=== PATIENT | female | born 1945 | race Caucasian/White ===

== ENCOUNTER 2021-11-13 05:36 | Outpatient (CLI) | payer BC, MEDICARE ==
[~2021-11-13] VITALS: Ht 165.1 cm; Wt 70.5 kg
[~2021-11-13 05:36] MED LIST: MTP25TSR; PANT40SU
[2021-11-14] MEDS ORDERED: CALC300T4 PO (15:08)
[2021-11-14] MEDS ORDERED: MTP25TSR PO (15:08)
[2021-11-14] MEDS ORDERED: ATOR40TA70 PO (15:08)
[2021-11-14] MEDS ORDERED: LEVO75TA PO (15:08)
[2021-11-14] MEDS ORDERED: PANT40TA2 PO (15:08)
== END 2021-11-14 15:13 | disposition home or self-care (01) ==
LOC: PREOP 05:36
PROVIDERS: ATTEND Urology
DX: Z01.818 Encounter for other preprocedural examination (principal)

== ENCOUNTER 2021-11-20 05:57 | Day surgery (SDC) | payer MEDICARE, OTHER ==
[~2021-11-20] VITALS: Ht 165.1 cm; Wt 70.5 kg
[2021-11-20] VITALS (10 sets, daily range): BP systolic 113–148; BP diastolic 55–75
[~2021-11-20 05:57] MED LIST changes: +ATOR40TA70 PO; +CALC300T4 PO; +LEVO75TA PO; +MTP25TSR PO; +PANT40TA2 PO
[2021-11-20] MEDS ORDERED: LACTATED RINGERS 1,000 ML IV PRN (06:30)
[2021-11-20] MEDS ORDERED: FAMOTIDINE 20MG/2ML IV (PEPCID) IV ONE (06:30)
[2021-11-20] MEDS ORDERED: ONDANSETRON 4 MG/2 ML (SDV) Z0FRAN IV ONE (06:30)
[2021-11-20] MEDS ORDERED: cefTRIAXone 1 GM PRE-MIX 50 ML IV ONE ×2 (06:35→08:00)
[2021-11-20] MEDS ORDERED: fentaNYL INJ 100 MCG/2 ML AMP ONE (06:59)
[2021-11-20] MEDS ORDERED: LIDOCAINE PF 2% 5 ML (XYLOCAINE) VIAL ONE (06:59)
[2021-11-20] MEDS ORDERED: ONDANSETRON 4 MG/2 ML (SDV) Z0FRAN ONE (06:59)
[2021-11-20] MEDS ORDERED: proPOfol 200 MG/20 ML (DIPRIVAN) VIAL IV ONE (06:59)
[2021-11-20] MEDS ORDERED: MIDAZOLAM 2 MG/2 ML (VERSED) VIAL ONE (07:00)
--- NOTE | 2021-11-20 07:51 | Progress Note-Pre Operative ---
Pre-Operative Progress Note H&P Reviewed The H&P was reviewed, patient examined and no changes noted. Date Seen by Provider: Nov 20, 2021 Time Seen by Provider: 07:51 Date H&P Reviewed: Nov 20, 2021 Time H&P Reviewed: 07:51 Pre-Operative Diagnosis: SMALL BLADDER TUMOR BARBARA LEWIS MD Nov 20, 2021 07:51
--- NOTE | 2021-11-20 07:53 | Progress Note-Post Operative ---
Post-Operative Progess Note Surgeon (s)/Food Inspector (s) Surgeon BARBARA LEWIS MD Food Inspector: NONE Pre-Operative Diagnosis SMALL BLADDER TUMOR Post-Operative Diagnosis SAME Procedure & Operative Findings Date of Procedure 11/20/21 Procedure Performed/Findings TURBT Anesthesia Type GENERAL Estimated Blood Loss Estimated blood loss (mL): NEGLGIBLE Specimens/Packing Specimens Removed BLADDER TUMOR AND BASE Packing: NONE BARBARA LEWIS MD Nov 20, 2021 07:53
--- NOTE | 2021-11-20 07:54 | Discharge Inst-Urology ---
Discharge Inst-Urology Reconcile Patient Problems Problems Reviewed?: Yes Final Diagnosis SMALL BLADDER TUMOR Patient Instructions/Follow Up Plan/Assessment/Instructions Please make appointment to been seen in office in 2 weeks. Increase oral fluids for 48 hours and then as needed. Diet and Activity as tolerated. If questions or concerns contact your physician Or seek help at emergency department. BARBARA LEWIS MD Nov 20, 2021 07:54
[2021-11-20] MEDS ORDERED: PHEN-640 PO (07:57)
[2021-11-20] MEDS ORDERED: NITR-65 PO (07:57)
[2021-11-20] MEDS ORDERED: SEVOFLURANE (ULTANE) 15 ML INHAL SOLN ONE ×2 (08:16→08:19)
[2021-11-20] MEDS ORDERED: ROCURONIUM 10 MG/ML 5 ML SYRINGE IV ONE (08:16)
[2021-11-20] MEDS ORDERED: GLYCOPYRROLATE 0.2 MG/ML (ROBINUL) 2 ML VIAL ONE (08:21)
[2021-11-20] MEDS ORDERED: NEOSTIGMINE 3 MG/3 ML VIAL ONE (08:21)
--- NOTE | 2021-11-20 12:36 | Anesthesia-General Post-Op ---
General Patient Condition Mental Status/LOC: Same as Preop Cardiovascular: Satisfactory Nausea/Vomiting: Absent Respiratory: Satisfactory Pain: Controlled Complications: Absent Post Op Complications Complications None Follow Up Care/Instructions Patient Instructions None needed. Anesthesia/Patient Condition Patient Condition Patient is doing well, no complaints, stable vital signs, no apparent adverse anesthesia problems. No complications reported per nursing. YOVANA KING CRNA Nov 20, 2021 12:35
--- NOTE | 2021-11-20 14:10 | OPERATIVE REPORT ---
DATE OF SERVICE: 11/20/2021 PREOPERATIVE DIAGNOSIS: Small bladder tumor. POSTOPERATIVE DIAGNOSIS: Small bladder tumor. OPERATION PERFORMED: Transurethral resection of bladder tumor. SURGEON: Cade Lewis MD ANESTHESIA: General. COMPLICATIONS: None. DESCRIPTION OF PROCEDURE: Under satisfactory general anesthesia, the patient in lithotomy position, genitalia were prepped and draped in the usual sterile fashion. Resectoscope was introduced in the bladder and again visualized the solitary small bladder tumor on the right side above and lateral to the ureteral orifice, was completely resected, shelling very easily and then a bite was taken from the base for staging. Hemostasis was complete. No further tumor was identified. Bladder was emptied, so resectoscope was removed. The patient tolerated the procedure and anesthesia well and was sent to recovery room in stable condition. The tumor was sent separately from the base to pathology. Job ID: [id number] DocumentID: [id number] Dictated Date: 11/20/2021 08:23:29 Squadron Worker Date: 11/20/2021 14:09:30 Dictated By: CADE LEWIS MD
== END 2021-11-20 10:25 | disposition home or self-care (01) ==
LOC: SDC 05:57
PROVIDERS: ATTEND Urology
DX: C67.9 Malignant neoplasm of bladder, unspecified (principal); N30.20 Other chronic cystitis without hematuria
CPT/HCPCS: 87081

== ENCOUNTER → 2021-12-11 | Outpatient (CLI) | payer MEDICARE, OTHER ==
[~2021-12-11] MED LIST changes: +CATHETER FLUSH 10 ML SYR IVP PRN; +NITR-65 PO; +PHEN-640 PO
[2021-12-11 09:32] VITALS: BP 160/75
[2021-12-11 09:39] VITALS: BP 153/65
[2021-12-11 09:44] VITALS: BP 174/59
--- NOTE | 2021-12-11 13:55 | Cardiology Stress Test Report ---
Stress Test Report Date of Procedure/Referring: Date of Procedure: Dec 11, 2021 PCP River Chan MD Admitting Physician Magali Banerjee MD Indications: HTN Baseline Heart Rate: 86 Baseline Blood Pressure: Blood Pressure Systolic: 174 Blood Pressure Diastolic: 59 Vital Signs Date Time Temp Pulse Resp B/P (MAP) Pulse Ox O2 Delivery O2 Flow Rate FiO2 12/11/21 09:32 78 16 160/75 (103) 98 12/11/21 09:44 Room Air Baseline Vital Signs Vital Signs Date Time Temp Pulse Resp B/P (MAP) Pulse Ox O2 Delivery O2 Flow Rate FiO2 12/11/21 09:32 78 16 160/75 (103) 98 12/11/21 09:44 Room Air Baseline EKG: Baseline EKG: NSR Summary: After explaining the procedure and details to the patient, she signed the consent and was brought to the stress nuclear laboratory. Patient exercised on standard Frank protocol, EKG, heart rate and blood pressure were monitored continuously, resting and stress doses of radio tracer were injected, imaging was acquired and reviewed in the short axis, horizontal long axis and vertical long axis views Patient was able to exercise for a total of 3.30 minutes on Frank protocol, METs 5.2 Maximum heart rate 139 Maximum blood pressure 187/59 Stress EKG, Minimal nondiagnostic changes Recovery EKG, Return to baseline TID: 1.11 SSS: 0 SDS: 0 EF: 78 Conclusion: 1. Good exercise tolerance for a total of 3 minutes and 30 seconds on standard Frank protocol, 5.2 METS achieving 95% of maximal expected heart rate 2. Appropriate heart rate response to exercise with hypertensive response to exercise with peak blood pressure 187/59 return to baseline during recovery 3. Nondiagnostic EKG changes with exercise with [address] depression in lead II, 3, aVF, [address] depression in lead V3, V4 and V5. Return to baseline during recovery 4. Small left ventricle with good radiotracer uptake no significant ischemia or infarction was seen on SPECT images 5. Estimated ejection fraction 78% Copy Copies To 1: MAGALI BANERJEE MD, BASHAR J MD Dec 11, 2021 13:55
== END ==
LOC: CARD 08:30
PROVIDERS: ATTEND Internal Medicine Cardiovascular Disease
DX: I10 Essential (primary) hypertension (principal); I25.10 Atherosclerotic heart disease of native coronary artery without angina pectoris
CPT/HCPCS: 78452; 93017; A9502

== ENCOUNTER → 2021-12-13 | Outpatient (CLI) | payer MEDICARE, OTHER ==
[~2021-12-13] MED LIST changes: -CATHETER FLUSH 10 ML SYR IVP PRN
== END ==
LOC: CARD 08:30
PROVIDERS: ATTEND Internal Medicine Cardiovascular Disease
DX: I34.0 Nonrheumatic mitral (valve) insufficiency (principal); I10 Essential (primary) hypertension; I25.10 Atherosclerotic heart disease of native coronary artery without angina pectoris
CPT/HCPCS: 93306